=== PATIENT | female | born 1945 | race Two or more races ===

== ENCOUNTER 2020-02-27 14:21 | Inpatient (IN) | payer OTHER, MEDICAID ==
[~2020-02-27] VITALS: Ht 152.4 cm; Wt 94.7 kg
[2020-02-27] MEDS ORDERED: SODIUM CHLORIDE 0.9% 1,000 ML IV ONE ×2 (14:45)
[2020-02-27 15:09] LABS: Basophils # (auto) 0 10 ^3/uL (0-0.2); Basophils % (auto) 0.2 % (0.0-2.0); Eosinophils # (auto) 0.1 10 ^3/uL (0-0.8); Eosinophils % (auto) 1.3 % (0.0-7.0); Hematocrit 37.5 % (36.0-46.0); Hemoglobin 12.4 g/dL (12.2-16.2); Lymphocytes # (auto) 0.3 10 ^3/uL (0.4-5.4); Lymphocytes % (auto) 3.8 % (10.0-50.0); Mean Corpuscular Hemoglobin 30.2 pg (28.0-32.0); Mean Corpuscular Hgb Conc. 33.1 g/dL (32.0-36.0); Mean Corpuscular Volume 91.3 fL (80.0-100.0); Monocytes # (auto) 0.5 10 ^3/uL (0-1.3); Neutrophils % (auto) 88.7 % (37.0-80.0); Platelet Count (auto) 180 10^3/uL (140-450); Red Blood Cells 4.11 10^6/uL (4.0-5.20); Red Cell Distribution Width 14.3 % (11.8-14.3)
[2020-02-27 15:24] LABS: INR 0.99 (0.9-1.15)
[2020-02-27 15:25] LABS: Albumin 3.7 g/dL (3.4-5.0); Anion Gap 5 (5-15); Blood Urea Nitrogen 25 mg/dL (7-18); Calcium 8.6 mg/dL (8.5-10.1); Carbon Dioxide 28 mmol/L (21-32); Chloride 108 mmol/L (98-107); Glucose 111 mg/dL (74-106); Magnesium 2.1 mg/dL (1.6-2.6); Potassium 4.3 mmol/L (3.5-5.1); Sodium 141 mmol/L (136-145)
[2020-02-27 15:31] LABS: Alanine Aminotransferase 18 U/L (13-56); Alkaline Phosphatase 68 U/L (45-117); Aspartate Aminotransferase 9 U/L (15-37); BUN/Creatinine Ratio 18.8; Bilirubin, Total 0.7 mg/dL (0.2-1.0); GFR African American 50 mL/min; GFR Non-African American 41 mL/min; Total Protein 6.4 g/dL (6.4-8.2)
[2020-02-27] MEDS ORDERED: NITROGLYCERIN 0.4 MG SL TAB SL PRN (18:15)
[2020-02-27] MEDS ORDERED: LORazepam 2MG/ML-1ML VIAL IV PRN (18:15)
[2020-02-27] MEDS ORDERED: hydrALAZINE HCL 20 MG/ML VL IV PRN (18:15)
[2020-02-27] MEDS ORDERED: ALBUTEROL SULF 2.5 MG/0.5ML(0.5%) NEB SOLN NEB PRN (18:30)
[2020-02-27] MEDS ORDERED: KETOROLAC TROMETH 60MG/2ML VIAL IM PRN (18:30)
[2020-02-27] MEDS ORDERED: ONDANSETRON HCL 4 MG/2 ML VIAL IV PRN (18:30)
[2020-02-27 19:29] VITALS: BP 114/70
--- NOTE | 2020-02-27 19:47 | NUR ---
Telemetry admit from ER INGAPARVE[facility] admitted to Telemetry unit after SBAR received from DALILA Grier. Patient oriented to Shraddha Carlton, primary RN, unit, room, bed, and unit policies regarding patient care and visiting hours. Patient now on continuous telemetry monitoring, tele box #53 and telemetry reading on arrival to unit is 82 bpm SR. Patient placed on bedside oxygen, weighed by bedscale and encouraged to call if they need something. All questions and concerns addressed, patient verbalized understanding.
[2020-02-27 19:50] VITALS: BP 154/94
--- NOTE | 2020-02-27 20:50 | NUR ---
Contact update Miley (daughter) [phone]. Password: [email or web address]
[2020-02-27] MEDS: BUDESONIDE (INHALATION) 0.5 MG/2 ML NEB NEB SCH (21:54)
[2020-02-27] MEDS ORDERED: POTA10TA51 PO (22:11)
[2020-02-27] MEDS ORDERED: DULO60CA PO (22:18)
[2020-02-27] MEDS ORDERED: METF500S PO (22:18)
[2020-02-27] MEDS ORDERED: MET50T PO (22:18)
[2020-02-27] MEDS ORDERED: RANO1000 PO (22:18)
[2020-02-27] MEDS ORDERED: FERR-7 PO (22:18)
[2020-02-27] MEDS ORDERED: PANT-36 PO (22:18)
[2020-02-27] MEDS ORDERED: LISI-648 PO (22:18)
[2020-02-27] MEDS: SODIUM CHLORIDE 0.9% 1,000 ML IV SCH (22:42)
--- NOTE | 2020-02-27 22:59 | NUR ---
Elevated Temp Patient had chills and stated "it feels like I'm running a temperature", RN took temperature of 101.0. Cooling measures performed, blankets were removed and ice packs placed. Will reassess.
[2020-02-28] MEDS ORDERED: ALBUTEROL SULF HFA 90MCG INH 200DOSE IN SCH
--- NOTE | 2020-02-28 00:02 | NUR ---
Temp, Hospitalist Temp now 100.6 after cooling measures performed. Patient removed ice pack because she "is too cold and shivering". Patient educated on cooling measures to lower temperature. Paged hospitalist and received order after read back and verification for Tylenol 650 mg Q6HPRN for temperature >100.4. Verified order for ACHS accu checks, no sliding scale ordered, serum glucose on admission of 111, per hospitalist Carmen, hold Metformin that patient usually takes at home due to BUN and creat. Orders read back, verified and input. Will administer tylenol.
[2020-02-28] MEDS: ACETAMINOPHEN 325 MG TAB PO PRN ×2 (00:21→18:24)
--- NOTE | 2020-02-28 04:45 | NUR ---
Temp RN made aware by CVOR NURSE of elevated temperature fo 100.1. PRN Tylenol not indicated and not available at this time. Cooling measures performed: blankets removed, ice pack placed. Will reassess and continue to monitor.
[2020-02-28 05:34] VITALS: BP 126/79
[2020-02-28 06:15] LABS: Basophils # (auto) 0 10 ^3/uL (0-0.2); Basophils % (auto) 0.2 % (0.0-2.0); Eosinophils # (auto) 0 10 ^3/uL (0-0.8); Eosinophils % (auto) 0.2 % (0.0-7.0); Hematocrit 37.7 % (36.0-46.0); Hemoglobin 12.7 g/dL (12.2-16.2); Lymphocytes # (auto) 0.4 10 ^3/uL (0.4-5.4); Lymphocytes % (auto) 7.7 % (10.0-50.0); Mean Corpuscular Hemoglobin 30.5 pg (28.0-32.0); Mean Corpuscular Hgb Conc. 33.7 g/dL (32.0-36.0); Mean Corpuscular Volume 90.5 fL (80.0-100.0); Monocytes # (auto) 0.4 10 ^3/uL (0-1.3); Neutrophils # (auto) 4.7 10 ^3/uL (1.6-8.6); Neutrophils % (auto) 84.9 % (37.0-80.0); Nucleated Red Blood Cells % 0.1 %; Platelet Count (auto) 166 10^3/uL (140-450); Red Blood Cells 4.17 10^6/uL (4.0-5.20); Red Cell Distribution Width 14.3 % (11.8-14.3); White Blood Cell 5.5 10^3/uL (4.4-10.8)
[2020-02-28 06:34] LABS: Potassium 3.5 mmol/L (3.5-5.1)
[2020-02-28 06:43] LABS: Albumin 3.6 g/dL (3.4-5.0); BUN/Creatinine Ratio 21.9; Bilirubin, Total 0.7 mg/dL (0.2-1.0); Calcium 8.3 mg/dL (8.5-10.1); Total Protein 6.3 g/dL (6.4-8.2)
[2020-02-28] MEDS: ACCU-CHEK COMFORT CURVE STRIP VI SCH ×4 (06:46→21:17)
--- NOTE | 2020-02-28 06:54 | NUR ---
Temp reassessed Temp now 98.7. Patient is now complaining of headache, will administer pain medication PRN.
--- NOTE | 2020-02-28 07:00 | NUR ---
OPENING SHIFT NOTE RECEIVED REPORT ON THE PATIENT. SLEEPING LYING IN BED. PATIENT SHOWS NO SIGNS OF DISTRESS AT THIS TIME. DISCUSSED THE PLAN OF CARE WITH THE PATIENT. BED IN LOWEST POSITION, SIDE RAILS UP X2, AND THE CALL LIGHT IS WITHIN REACH.
[2020-02-28 08:42] VITALS: BP 142/74
[2020-02-28] MEDS: ENOXAPARIN SOD 40 MG/0.4 ML SYRINGE SC SCH (09:44)
[2020-02-28] MEDS: PANTOPRAZOLE 40 MG/10 ML VIAL INJ IV SCH (09:44)
[2020-02-28] MEDS ORDERED: CEFTRIAXONE SODIUM 2 GM in D5W 5% 50 ML IV ONE (10:30)
[2020-02-28] MEDS ORDERED: DOXYCYCLINE 100 MG TAB/CAP PO ONE (10:30)
--- NOTE | 2020-02-28 10:37 | NUR ---
DR LARA AT THE BEDSIDE. NEW ORDERS RECEIVED
[2020-02-28] MEDS: BUDESONIDE (INHALATION) 0.5 MG/2 ML NEB NEB SCH ×2 (10:40→22:44)
[2020-02-28] MEDS ORDERED: DEXTROSE (50%) 50ML SYRG IV PRN (10:45)
[2020-02-28] MEDS: InsuLIN REG 1unit/0.01ml Soln (100units/ml) SC SCH ×3 (11:45→21:17)
--- NOTE | 2020-02-28 11:55 | NUR ---
COVID SWAB WALKED TO LAB.
[2020-02-28 12:52] VITALS: BP 143/79
[2020-02-28 13:57] LABS: Urine Bacteria FEW /hpf (None Seen); Urine Blood Negative /uL (Negative); Urine Hyaline Cast FEW /lpf (0 - 2); Urine Mucus FEW (None Seen); Urine Specific Gravity 1.013 (1.001-1.035); Urine WBC 20 /hpf (0 - 5)
--- NOTE | 2020-02-28 16:01 | NUR ---
PAGED DR LARA REGARDING THE PATIENT'S BP OF 153/85 AND HEADACHE
--- NOTE | 2020-02-28 16:50 | NUR ---
PAGED DR LARA REGARDING THE PATIENTS BP OFF 153/85 AGAIN
[2020-02-28 16:52] VITALS: BP 153/85
--- NOTE | 2020-02-28 17:45 | NUR ---
PAGED CHIEF OF HOSPITAL MEDICINE HOSPITALIST REGARDING HIGH BP. NEW ORDERS RECEIVED.
[2020-02-28] MEDS ORDERED: hydrALAZINE HCL 25 MG TAB PO PRN ×3 (18:00→22:30)
[2020-02-28] MEDS ORDERED: FUROSEMIDE 40 MG TAB PO SCH (18:00)
[2020-02-28] MEDS: SUCRALFATE 1 GM/10 ML ORAL SUSP PO SCH (18:23)
[2020-02-28] MEDS: SODIUM CHLORIDE 0.9% 1,000 ML IV SCH (18:23)
--- NOTE | 2020-02-28 19:35 | NUR ---
Opening Shift Note Assumed care of patient, AOX4. No S/S of distress/SOB or pain. Fall and safety precautions in place. Call light within reach and able to use. Instructed on POC and to call for assist PRN, patient verbalized understanding and in agreement. Will continue to monitor for changes Q1hr and PRN.
[2020-02-28] MEDS: DOXYCYCLINE 100 MG TAB/CAP PO SCH (21:16)
--- NOTE | 2020-02-28 21:25 | NUR ---
HIGH BP / PAIN PATIENT'S BLOOD PRESSURE 168/85 MMHG WITH A HEART RATE 69 BPM AND COMPLAINING OF 10/10 GENERALIZED HEADACHE USING ADULT PAIN SCALE. [facility] PAGED. AWAITING CALL BACK. WILL CONTINUE TO MONITOR.
--- NOTE | 2020-02-28 22:05 | NUR ---
CALL-BACK FROM [facility] RECEIVED A CALL BACK FROM [facility]. UPDATED CERTIFIED PEST CONTROL TECHNICIAN ON PATIENT STATUS AND PATIENT COMPLAINT. NEW ORDERS RECEIVED, READ BACK AND VERIFIED. SEE NEW ORDERS. WILL CARRY OUT UPON REASSESSMENT OF SUFFICIENT TIME ELAPSED FOR PRN FOR ORDERS (SEE EMAR). WILL CONTINUE TO MONITOR. Addendum: 02/29/20 at 0227 by FELIX AGUILAR RN RN CERTIFIED PEST CONTROL TECHNICIAN AWARE OF PATIENT'S PAIN RATED 10/10 AND AVAILABLE PRN'S FOR PAIN MANAGEMENT INCLUDING ONLY MILD PAIN.
--- NOTE | 2020-02-28 22:15 | NUR ---
PHARMACY / MAX DOSE RECEIVED CALL FROM PHARMACY AT THIS TIME. PHARMACIST STATED NEW ORDER FOR BP MEDICATION REACHING BEYOND MAX DOSE FOR DAY. AT 2215, [facility] PAGED. AWAITING CALL BACK. WILL CONTINUE TO MONITOR.
--- NOTE | 2020-02-28 22:23 | NUR ---
RECEIVED CALL-BACK RECEIVED CALL-BACK FROM ON-CALL HOSPITALIST. UPDATED PHARMACOEPIDEMIOLOGIST ON NOTIFICATION FROM PHARMACIST. RECEIVED NEW ORDER, READ BACK AND VERIFIED (SEE NEW ORDERS). WILL CONTINUE TO MONITOR.
--- NOTE | 2020-02-28 22:30 | NUR ---
STOOL SENT PER MD ORDER, STOOL SAMPLE OBTAINED AND SENT TO LAB. WILL CONTINUE TO MONITOR.
[2020-02-28 23:08] VITALS: BP 168/85
--- NOTE | 2020-02-29 04:05 | NUR ---
PAIN PATIENT C/O GENERALIZED HEADACHE RATED 10/10 USING ADULT PAIN SCALE. ALREADY MADE [facility] AWARE OF PATIENT'S PAIN LEVEL AND AVAILABLE PRN FOR PAIN MANAGEMENT. DISCUSSED WITH PATIENT AVAILABLE OPTIONS FOR PAIN RELIEF, PATIENT VERBALIZED UNDERSTANDING AND IN AGREEMENT WITH TYLENOL. SEE EMAR FOR ADMINISTRATION. WILL CONTINUE TO MONITOR.
[2020-02-29] MEDS: ACETAMINOPHEN 325 MG TAB PO PRN ×2 (04:09→16:21)
[2020-02-29 05:55] VITALS: BP 143/87
[2020-02-29] MEDS: InsuLIN REG 1unit/0.01ml Soln (100units/ml) SC SCH ×3 (06:15→17:00)
[2020-02-29] MEDS: SUCRALFATE 1 GM/10 ML ORAL SUSP PO SCH ×2 (06:15→17:24)
[2020-02-29] MEDS: ACCU-CHEK COMFORT CURVE STRIP VI SCH ×3 (06:15→17:23)
[2020-02-29] MEDS: SODIUM CHLORIDE 0.9% 1,000 ML IV SCH (06:34)
--- NOTE | 2020-02-29 07:00 | NUR ---
OPENING SHIFT NOTE RECEIVED REPORT ON THE PATIENT. AWAKE LYING IN BED. PATIENT SHOWS NO SIGNS OF DISTRESS AT THIS TIME. DISCUSSED THE PLAN OF CARE WITH THE PATIENT. BED IN LOWEST POSITION, SIDE RAILS UP X2, AND THE CALL LIGHT IS WITHIN REACH. WILL CONTINUE TO MONITOR.
[2020-02-29] MEDS: BUDESONIDE (INHALATION) 0.5 MG/2 ML NEB NEB SCH (08:12)
[2020-02-29 09:00] VITALS: BP 141/81
[2020-02-29] MEDS: DOXYCYCLINE 100 MG TAB/CAP PO SCH (09:57)
[2020-02-29] MEDS: PANTOPRAZOLE 40 MG/10 ML VIAL INJ IV SCH (09:57)
[2020-02-29] MEDS: ENOXAPARIN SOD 40 MG/0.4 ML SYRINGE SC SCH (09:58)
[2020-02-29] MEDS ORDERED: CEFTRIAXONE SODIUM 2 GM in D5W 5% 50 ML IV SCH (10:00)
--- NOTE | 2020-02-29 12:11 | NUR ---
PATIENT BLOOD GLUCOSE WAS 71. PATIENT THOUGHT THAT WAS TOO LOW AND REQUEST 1 BOX OF ORANGE JUICE.
[2020-02-29 13:00] VITALS: BP 160/90
[2020-02-29 16:22] VITALS: BP 121/72
[2020-02-29 17:00] VITALS: BP 159/94
== END 2020-02-29 18:13 | disposition home or self-care (01) | DRG 312 ==
LOC: EDBD 14:21 → ER 14:21 → TELE 14:22 → TELE-WESTW 19:50
PROVIDERS: ATTEND Internal Medicine Nephrology
DX: R55 Syncope and collapse (principal); I13.0 Hypertensive heart and chronic kidney disease with heart failure and stage 1 through stage 4 chronic kidney disease, or unspecified chronic kidney disease; J98.11 Atelectasis; R65.10 Systemic inflammatory response syndrome (SIRS) of non-infectious origin without acute organ dysfunction; E11.22 Type 2 diabetes mellitus with diabetic chronic kidney disease; N18.9 Chronic kidney disease, unspecified; J44.9 Chronic obstructive pulmonary disease, unspecified; I25.10 Atherosclerotic heart disease of native coronary artery without angina pectoris; Z95.5 Presence of coronary angioplasty implant and graft; Z20.828 Contact with and (suspected) exposure to other viral communicable diseases; Z88.5 Allergy status to narcotic agent; E11.65 Type 2 diabetes mellitus with hyperglycemia; E86.0 Dehydration; I25.2 Old myocardial infarction; E87.6 Hypokalemia; E11.40 Type 2 diabetes mellitus with diabetic neuropathy, unspecified; I50.9 Heart failure, unspecified; Z79.84 Long term (current) use of oral hypoglycemic drugs
CPT/HCPCS: 36415; 70450; 71045; 80053; 81001; 82270; 82962; 83036; 83735; 83880; 84100; 84443; 84484; 85025; 85610; 85730; 87040; 87086; 93005; 93306; 94640; 96360; 96361; 99291; C9113; G0378; J0696; J1815; J1885; J7060

== ENCOUNTER 2020-09-12 07:26 | Inpatient (IN) | payer OTHER, MEDICAID ==
[~2020-09-12] VITALS: Ht 152.4 cm; Wt 94.4 kg
[~2020-09-12 07:26] MED LIST: DULO60CA PO; FERR-7 PO; LISI-648 PO; MET50T PO; METF500S PO; PANT40TA57 PO; POTA10TA51 PO; RANO1000 PO
[2020-09-12 08:26] LABS: Basophils # (auto) 0 10 ^3/uL (0-0.2); Basophils % (auto) 0.5 % (0.0-2.0); Eosinophils # (auto) 0.1 10 ^3/uL (0-0.8); Eosinophils % (auto) 2.8 % (0.0-7.0); Hematocrit 38.8 % (36.0-46.0); Hemoglobin 12.9 g/dL (12.2-16.2); Lymphocytes % (auto) 20.3 % (10.0-50.0); Mean Corpuscular Hemoglobin 29.6 pg (28.0-32.0); Mean Corpuscular Hgb Conc. 33.3 g/dL (32.0-36.0); Mean Corpuscular Volume 88.9 fL (80.0-100.0); Monocytes # (auto) 0.4 10 ^3/uL (0-1.3); Monocytes % (auto) 8.6 % (0.0-12.0); Neutrophils # (auto) 3.3 10 ^3/uL (1.6-8.6); Neutrophils % (auto) 67.8 % (37.0-80.0); Nucleated Red Blood Cells % 0.1 %; Platelet Count (auto) 160 10^3/uL (140-450); Red Blood Cells 4.37 10^6/uL (4.0-5.20); Red Cell Distribution Width 14.2 % (11.8-14.3); White Blood Cell 4.8 10^3/uL (4.4-10.8)
[2020-09-12 08:41] LABS: INR 1.01 (0.9-1.15); Partial Thromboplastin Time 27.9 sec (23.0-31.2)
[2020-09-12 08:45] LABS: Albumin 3.5 g/dL (3.4-5.0); Calcium 8.4 mg/dL (8.5-10.1); Potassium 3.6 mmol/L (3.5-5.1)
[2020-09-12 08:49] LABS: BUN/Creatinine Ratio 26.9; Bilirubin, Total 0.8 mg/dL (0.2-1.0); Total Protein 6.7 g/dL (6.4-8.2)
[2020-09-12] MEDS ORDERED: BACITRACIN TOP OINT 1 UD PKG TOP ONE (11:15)
[2020-09-12] MEDS ORDERED: MORPHINE SULF INJ 2 MG/ML SYRINGE 1ML IV ONE ×2 (11:15→13:45)
[2020-09-12] MEDS ORDERED: ONDANSETRON HCL 4 MG/2 ML VIAL IV ONE ×2 (11:15→13:45)
[2020-09-12] MEDS ORDERED: NITROGLYCERIN 0.4 MG SL TAB SL PRN (16:45)
[2020-09-12] MEDS ORDERED: MORPHINE SULF INJ 2 MG/ML SYRINGE 1ML IV PRN ×2 (16:45)
[2020-09-12] MEDS ORDERED: ONDANSETRON HCL 4 MG/2 ML VIAL IV PRN (16:45)
[2020-09-12] MEDS ORDERED: DEXTROSE (50%) 50ML SYRG IV PRN (16:45)
[2020-09-12] MEDS: InsuLIN REG 1unit/0.01ml Soln (100units/ml) SC SCH ×2 (17:00→22:00)
[2020-09-12] MEDS: HYDROcodone-ACET 5/325MG TAB PO PRN (17:13)
[2020-09-12] MEDS: ACCU-CHEK COMFORT CURVE STRIP VI SCH ×2 (17:14→22:02)
[2020-09-12 20:00] VITALS: BP 143/80
[2020-09-12 21:52] VITALS: BP 127/90
[2020-09-12] MEDS: RANOLAZINE ER 500 MG TAB PO SCH (22:02)
[2020-09-13] MEDS: ACETAMINOPHEN 500 MG TAB PO PRN ×3 (01:53→19:29)
[2020-09-13 05:00] VITALS: BP 103/50
[2020-09-13] MEDS: ACCU-CHEK COMFORT CURVE STRIP VI SCH ×4 (06:14→20:44)
[2020-09-13] MEDS: InsuLIN REG 1unit/0.01ml Soln (100units/ml) SC SCH ×4 (06:17→20:44)
[2020-09-13 09:00] VITALS: BP 116/72
[2020-09-13] MEDS: FAMOTIDINE 20 MG TAB PO SCH (10:16)
[2020-09-13] MEDS: DULoxetine HCL 30 MG CAP PO SCH (10:16)
[2020-09-13] MEDS: RANOLAZINE ER 500 MG TAB PO SCH ×2 (10:16→20:48)
[2020-09-13] MEDS: LISINOPRIL 10 MG TAB PO SCH (10:17)
[2020-09-13] MEDS: PANTOPRAZOLE 40 MG TAB PO SCH (10:17)
[2020-09-13] MEDS: METOPROLOL TARTRATE 50 MG TAB PO SCH (10:17)
[2020-09-13 13:00] VITALS: BP 129/76
[2020-09-13] MEDS: HYDROcodone-ACET 5/325MG TAB PO PRN (16:41)
[2020-09-13 17:00] VITALS: BP 153/94
[2020-09-13 21:32] VITALS: BP 152/91
[2020-09-14] MEDS: ACETAMINOPHEN 500 MG TAB PO PRN (05:18)
[2020-09-14] MEDS: InsuLIN REG 1unit/0.01ml Soln (100units/ml) SC SCH ×2 (05:23→11:30)
[2020-09-14] MEDS: ACCU-CHEK COMFORT CURVE STRIP VI SCH ×2 (05:23→11:30)
[2020-09-14] MEDS ORDERED: hydrALAZINE HCL 20 MG/ML VL IV PRN (05:30)
[2020-09-14 05:50] VITALS: BP 160/106
[2020-09-14 06:21] LABS: Basophils # (auto) 0 10 ^3/uL (0-0.2); Basophils % (auto) 0.3 % (0.0-2.0); Eosinophils # (auto) 0 10 ^3/uL (0-0.8); Eosinophils % (auto) 0.5 % (0.0-7.0); Hematocrit 34.5 % (36.0-46.0); Hemoglobin 12.2 g/dL (12.2-16.2); Lymphocytes # (auto) 1.2 10 ^3/uL (0.4-5.4); Lymphocytes % (auto) 16.2 % (10.0-50.0); Mean Corpuscular Hemoglobin 31.2 pg (28.0-32.0); Mean Corpuscular Hgb Conc. 35.4 g/dL (32.0-36.0); Mean Corpuscular Volume 88.1 fL (80.0-100.0); Monocytes # (auto) 0.5 10 ^3/uL (0-1.3); Monocytes % (auto) 6.6 % (0.0-12.0); Neutrophils # (auto) 5.5 10 ^3/uL (1.6-8.6); Neutrophils % (auto) 76.4 % (37.0-80.0); Nucleated Red Blood Cells % 0.1 %; Platelet Count (auto) 172 10^3/uL (140-450); Red Blood Cells 3.92 10^6/uL (4.0-5.20); Red Cell Distribution Width 14.4 % (11.8-14.3); White Blood Cell 7.3 10^3/uL (4.4-10.8)
[2020-09-14 06:29] LABS: Anion Gap 5 (5-15); Blood Urea Nitrogen 13 mg/dL (7-18); Calcium 8.4 mg/dL (8.5-10.1); Carbon Dioxide 28 mmol/L (21-32); Chloride 107 mmol/L (98-107); Glucose 139 mg/dL (74-106); Potassium 3.5 mmol/L (3.5-5.1); Sodium 140 mmol/L (136-145)
[2020-09-14 06:34] LABS: BUN/Creatinine Ratio 25.5; GFR African American 151 mL/min; GFR Non-African American 125 mL/min
[2020-09-14 09:00] VITALS: BP 128/80
[2020-09-14] MEDS: RANOLAZINE ER 500 MG TAB PO SCH (10:42)
[2020-09-14] MEDS: PANTOPRAZOLE 40 MG TAB PO SCH (10:42)
[2020-09-14] MEDS: METOPROLOL TARTRATE 50 MG TAB PO SCH (10:43)
[2020-09-14] MEDS: LISINOPRIL 10 MG TAB PO SCH (10:43)
[2020-09-14] MEDS: FAMOTIDINE 20 MG TAB PO SCH (10:44)
[2020-09-14] MEDS: DULoxetine HCL 30 MG CAP PO SCH (10:44)
[2020-09-14 12:29] VITALS: BP 128/80
[2020-09-14 13:00] VITALS: BP 118/72
== END 2020-09-14 15:44 | disposition home or self-care (01) | DRG 150 ==
LOC: EDBD 07:26 → ER 07:26 → TELE 16:41 → TELE-WESTW 19:45
PROVIDERS: ADMIT Nurse Practitioner Acute Care; ATTEND Internal Medicine
DX: R04.0 Epistaxis (principal); N17.0 Acute kidney failure with tubular necrosis; Z68.41 Body mass index [BMI] 40.0-44.9, adult; E11.21 Type 2 diabetes mellitus with diabetic nephropathy; I25.10 Atherosclerotic heart disease of native coronary artery without angina pectoris; E66.9 Obesity, unspecified; Z20.822 Contact with and (suspected) exposure to COVID-19; E11.22 Type 2 diabetes mellitus with diabetic chronic kidney disease; E78.5 Hyperlipidemia, unspecified; I12.9 Hypertensive chronic kidney disease with stage 1 through stage 4 chronic kidney disease, or unspecified chronic kidney disease; N18.9 Chronic kidney disease, unspecified; Z95.5 Presence of coronary angioplasty implant and graft; Z88.5 Allergy status to narcotic agent; Z79.84 Long term (current) use of oral hypoglycemic drugs; Z79.899 Other long term (current) drug therapy; Z82.49 Family history of ischemic heart disease and other diseases of the circulatory system
CPT/HCPCS: 30901; 36415; 80048; 80053; 82962; 83036; 84443; 84484; 85025; 85610; 85730; 87426; 96374; 96375; 96376; G0378; J1815; J2405